=== PATIENT | female | born 1950 | race Caucasian/White ===

== ENCOUNTER 2019-01-03 10:55 | Day surgery (SDC) | payer MEDICARE ==
[~2019-01-03] VITALS: Ht 165.1 cm; Wt 117.0 kg
[~2019-01-03 10:55] MED LIST: ACET1TAB55 PO; ASPI1TAB PO; BIOT50004 PO; CALC1TAB40 PO; FAMO1TAB25 PO; FERR32TA PO; FLUTISP; GLIP5TAB20 PO; LORA-243 PO; LOSA25TA14 PO; METF-699 PO; NS 1,000 ML IV ONE; PRAV10TA3 PO; SYMB16INH INH; TUMS500C PO
[2019-01-03] MEDS ORDERED: fentaNYL 100 MCG/2 ML INJECTION (J3010) As Ordered ONE (12:41)
[2019-01-03] MEDS ORDERED: PROPOFOL 200 MG/20 ML VIAL As Ordered ONE (12:41)
[2019-01-03] MEDS ORDERED: LIDOCAINE 2% INJ 100 MG/5 ML SDV (FOR ANES.) As Ordered ONE (12:42)
--- NOTE | 2019-01-03 13:03 | ROOR ---
Patient Name: Marce Iglesias Procedure Date: 01/03/2019 12:42 PM Date of : 1950 Age: 68 Room: [facility] Gender: Female Note Status: Finalized Procedure: Upper GI endoscopy Indications: Iron deficiency anemia Providers: Young MAGUIRE MD Referring MD: YAZAN Miller Requesting Provider: Medicines: Monitored Anesthesia Care Complications: No immediate complications. Procedure: Pre-Anesthesia Assessment: - The heart rate, respiratory rate, oxygen saturations, blood pressure, adequacy of pulmonary ventilation, and response to care were monitored throughout the procedure. The Endoscope was introduced through the mouth, and advanced to the second part of duodenum. The upper GI endoscopy was accomplished without difficulty. The patient tolerated the procedure well. Findings: The examined esophagus was normal. Scattered moderate inflammation characterized by erosions and erythema was found in the gastric antrum. Biopsies were taken with a cold forceps for histology. The exam of the stomach was otherwise normal. The examined duodenum was normal. Biopsies for histology were taken with a cold forceps for evaluation of celiac disease. Impression: - Normal esophagus. - Moderate gastritis with a few scattered superficial erosions in the antrum. Biopsied. - The stomach is otherwise normal. - Normal examined duodenum. Biopsied. Recommendation: - Await pathology results. - Use Prilosec (omeprazole) 40 mg PO daily. - (the script was sent to your pharmacy on file) - If applicable, reduce/avoid NSAID pain medications. Use tylenol instead Young Maguire MD Young MAGUIRE MD 01/03/2019 1:02:41 PM This report has been signed electronically. Number of Addenda: 0 Note Initiated On: 01/03/2019 12:42 PM Estimated Blood Loss: Estimated blood loss: none.
--- NOTE | 2019-01-03 13:22 | ROOR ---
Patient Name: Marce Iglesias Procedure Date: 01/03/2019 12:43 PM Date of : 1950 Age: 68 Room: [facility] Gender: Female Note Status: Finalized Procedure: Colonoscopy Indications: Iron deficiency anemia Providers: Young MAGUIRE MD Referring MD: YAZAN Miller Requesting Provider: Medicines: Monitored Anesthesia Care Complications: No immediate complications. Procedure: Pre-Anesthesia Assessment: - The heart rate, respiratory rate, oxygen saturations, blood pressure, adequacy of pulmonary ventilation, and response to care were monitored throughout the procedure. The Colonoscope was introduced through the anus and advanced to 10 cm into the ileum. The colonoscopy was performed without difficulty. The patient tolerated the procedure well. The quality of the bowel preparation was good. Findings: The perianal and digital rectal examinations were normal. A single medium-sized localized angioectasia with bleeding on contact was found in the cecum. For hemostasis, two hemostatic clips were successfully placed. There was no bleeding at the end of the procedure. Multiple medium-mouthed diverticula were found in the sigmoid colon and descending colon. Internal hemorrhoids were found during retroflexion. The hemorrhoids were medium-sized. The exam was otherwise without abnormality on direct and retroflexion views. Impression: - A single colonic angioectasia (cecum). Clips were placed. - Moderate diverticulosis in the sigmoid colon and in the descending colon. - Internal hemorrhoids. - The examination was otherwise normal on direct and retroflexion views. - No specimens collected. Recommendation: - Continue present medications. - No ibuprofen, naproxen, or other non-steroidal anti-inflammatory drugs. Young Maguire MD Young MAGUIRE MD 01/03/2019 1:22:18 PM This report has been signed electronically. Number of Addenda: 0 Note Initiated On: 01/03/2019 12:43 PM Estimated Blood Loss: Estimated blood loss: none.
[2019-01-03 13:52] VITALS: BP 149/75
== END 2019-01-03 14:01 | disposition home or self-care (01) ==
LOC: M OPP 10:55
PROVIDERS: ATTEND Internal Medicine Gastroenterology
DX: D50.9 Iron deficiency anemia, unspecified (principal); K52.0 Gastroenteritis and colitis due to radiation; K64.8 Other hemorrhoids; K57.30 Diverticulosis of large intestine without perforation or abscess without bleeding; K29.70 Gastritis, unspecified, without bleeding; Z79.82 Long term (current) use of aspirin; Z79.899 Other long term (current) drug therapy; Z88.2 Allergy status to sulfonamides; Z91.048 Other nonmedicinal substance allergy status; Z88.8 Allergy status to other drugs, medicaments and biological substances
CPT/HCPCS: 43239; 45382; 88305; J3010

== ENCOUNTER 2021-09-03 07:27 | Emergency (ER) | payer MEDICARE ==
[~2021-09-03] VITALS: Ht 167.6 cm; Wt 119.8 kg
[~2021-09-03 07:27] MED LIST changes: -ASPI1TAB PO; +ASPI81TA26 PO; +FAMO10TA50 PO; -FAMO1TAB25 PO; -METF-699 PO; +METF-817 PO; -NS 1,000 ML IV ONE
[2021-09-03 08:33] LABS: BASO % 0.5 % (0.0-1.0); EOS % 0.3 % (0.0-3.0); HEMATOCRIT 39.2 % (36.0-47.0); HEMOGLOBIN 12.9 g/dl (12.0-15.5); LYMPH # 0.8 10^3/uL (1.5-5.0); LYMPH % 10.3 % (24.0-44.0); MEAN CORPUSCULAR HEMOGLOBIN 33.2 pg (27.0-33.0); MEAN CORPUSCULAR HGB CONC 32.9 g/dl (32.0-36.5); MEAN CORPUSCULAR VOLUME 100.8 fl (80.0-96.0); MONO # 0.7 10^3/uL (0.0-0.8); MONO % 9.1 % (2.0-8.0); NEUTROPHILS # 6.3 10^3/uL (1.5-8.5); NEUTROPHILS % 79.5 % (36.0-66.0); PLATELET COUNT, AUTOMATED 186 10^3/uL (150-450); RED BLOOD COUNT 3.89 10^6/uL (4.00-5.40); WHITE BLOOD COUNT 7.9 10^3/uL (4.0-10.0)
[2021-09-03] MEDS ORDERED: ONDANSETRON 4MG/2ML VIAL IV ONE (08:45)
[2021-09-03] MEDS ORDERED: MORPHINE 2 MG/ML 1ML VIAL (J2270) IV ONE (08:45)
--- NOTE | 2021-09-03 08:48 | REP ---
INDICATION: bilat shoulder pain. decreased COMPARISON: None. TECHNIQUE: Internal rotation, external rotation, and Y view. FINDINGS: Left shoulder demonstrates cortical irregularity at the acromioclavicular joint along with subtle increased sclerosis and blunting to the glenoid rim. No evidence for acute fracture or dislocation. Subacromial space is normal. No periarticular calcifications or loose bodies are identified. Right shoulder demonstrates cortical irregularity and moderate spurring at the acromioclavicular joint and distal aspect of the acromion process. Increased sclerosis and blunting to the glenoid rim is appreciated. No evidence for acute fracture or dislocation. Subacromial space is normal. No periarticular calcifications or loose bodies are identified. IMPRESSION: Moderate bilateral arthritic degenerative changes (right greater than left). <Electronically signed by Alfie Sweeney > 09/03/21 [id number]
[2021-09-03 09:03] LABS: BLOOD UREA NITROGEN 20 MG/DL (7-18); CALCIUM LEVEL 9.8 MG/DL (8.8-10.2); CARBON DIOXIDE LEVEL 25 MEQ/L (21-32); CHLORIDE LEVEL 104 MEQ/L (98-107); CK-MB VALUE MASS < 1.0 NG/ML (<3.6); CPK CREATINE PHOSPHOKINASE 42 U/L (26-192); CREATININE FOR GFR 1.04 MG/DL (0.55-1.30); GLOMERULAR FILTRATION RATE 55.6 (>39); GLUCOSE, FASTING 268 MG/DL (70-100); MB/CK RELATIVE INDEX 2.38 (< OR =4); POTASSIUM SERUM 4.5 MEQ/L (3.5-5.1); SODIUM LEVEL 137 MEQ/L (136-145); TROPONIN I < 0.02 NG/ML (< 0.10)
[2021-09-03] MEDS ORDERED: KETOROLAC 30 MG/ML 1ML VIAL IV ONE (10:55)
[2021-09-03 11:50] VITALS: BP 186/84
--- NOTE | 2021-09-03 17:44 | ECGEPIP ---
[facility] - ED Test Date: 2021-09-03 Pat Name: MUNA MELTON Department: Room: - Gender: Female Administrator Pesticide: reji : 1950 Requested By: MARISA Parra PA-C Order Number: [id number] Reading MD: Adele Patel Measurements Intervals [place] Rate: 87 P: 42 ID: [id number] QRS: -5 QRSD: 86 T: 40 QT: 370 QTc: 445 Interpretive Statements Normal sinus rhythm No prior Electronically Signed on 09-03-2021 17:44:12 EDT by Adele Patel
== END 2021-09-03 11:52 | disposition home or self-care (01) ==
LOC: M ED 07:27
DX: M25.511 Pain in right shoulder (principal); M25.512 Pain in left shoulder; E11.9 Type 2 diabetes mellitus without complications; J45.909 Unspecified asthma, uncomplicated; M19.90 Unspecified osteoarthritis, unspecified site; Z79.82 Long term (current) use of aspirin; Z79.84 Long term (current) use of oral hypoglycemic drugs; Z79.899 Other long term (current) drug therapy; Z88.2 Allergy status to sulfonamides; Z88.8 Allergy status to other drugs, medicaments and biological substances; Z91.89 Other specified personal risk factors, not elsewhere classified
CPT/HCPCS: 73030; 80048; 82550; 82553; 84484; 85025; 93005; 96374; 96375; 99284; J1885; J2270; J2405

== ENCOUNTER 2022-02-06 12:18 | Emergency (ER) | payer MEDICARE ==
[~2022-02-06] VITALS: Ht 167.6 cm; Wt 111.8 kg
[2022-02-06 12:18] VITALS: BP 154/73
[~2022-02-06 12:18] MED LIST changes: +LOSA25TA13 PO; -LOSA25TA14 PO
[2022-02-06] MEDS ORDERED: NS 1,000 ML IV ONE (15:05)
[2022-02-06] MEDS ORDERED: ALBUTEROL 90 MCG/ACT 8GM HFA INHALER INH ONE (15:05)
[2022-02-06] MEDS ORDERED: methylPREDNISolone 125MG 2ML VIAL IV ONE (15:05)
[2022-02-06 15:35] LABS: RSV AMPLIFICATION NEGATIVE (NEGATIVE)
[2022-02-06 15:38] LABS: BASO % 0.5 % (0.0-1.0); EOS # 0.1 10^3/uL (0.0-0.5); EOS % 1.3 % (0.0-3.0); HEMATOCRIT 37.2 % (36.0-47.0); HEMOGLOBIN 12.5 g/dl (12.0-15.5); LYMPH # 0.7 10^3/uL (1.5-5.0); LYMPH % 13.2 % (24.0-44.0); MEAN CORPUSCULAR HEMOGLOBIN 31.6 pg (27.0-33.0); MEAN CORPUSCULAR HGB CONC 33.6 g/dl (32.0-36.5); MEAN CORPUSCULAR VOLUME 94.2 fl (80.0-96.0); MONO # 0.7 10^3/uL (0.0-0.8); MONO % 12.4 % (2.0-8.0); NEUTROPHILS % 72.2 % (36.0-66.0); PLATELET COUNT, AUTOMATED 232 10^3/uL (150-450); RED BLOOD COUNT 3.95 10^6/uL (4.00-5.40); WHITE BLOOD COUNT 5.6 10^3/uL (4.0-10.0)
[2022-02-06 15:40] VITALS: O2SAT 96
[2022-02-06 16:12] LABS: ALBUMIN 3.6 GM/DL (3.2-5.2); ALT/SGPT 21 U/L (12-78); BILIRUBIN,DIRECT 0.6 MG/DL (0.0-0.2); BILIRUBIN,TOTAL 1.3 MG/DL (0.2-1.0); BLOOD UREA NITROGEN 15 MG/DL (7-18); CALCIUM LEVEL 9.5 MG/DL (8.8-10.2); CARBON DIOXIDE LEVEL 29 MEQ/L (21-32); CHLORIDE LEVEL 95 MEQ/L (98-107); CREATININE FOR GFR 0.96 MG/DL (0.55-1.30); GLOMERULAR FILTRATION RATE > 60.0 (>39); GLUCOSE, FASTING 167 MG/DL (70-100); NT-PRO BNP 100 PG/ML (<125); POTASSIUM SERUM 4.2 MEQ/L (3.5-5.1); SODIUM LEVEL 130 MEQ/L (136-145); TOTAL PROTEIN 7.9 GM/DL (6.4-8.2)
[2022-02-06] MEDS ORDERED: cefTRIAXone SOD 2 GM in D5W MINI-BAG PLUS 50 ML IV ONE (16:30)
[2022-02-06] MEDS ORDERED: LevoFLOXacin IV 750 MG in IV 1 EA IV ONE (16:30)
[2022-02-06] MEDS ORDERED: LEVO750T14 PO (18:39)
[2022-02-06] MEDS ORDERED: VENTAER INH (18:43)
[2022-02-06] MEDS ORDERED: PRED20TA PO (18:43)
== END 2022-02-06 18:52 | disposition home or self-care (01) ==
LOC: M ED 12:18
DX: J18.9 Pneumonia, unspecified organism (principal); E11.9 Type 2 diabetes mellitus without complications; I10 Essential (primary) hypertension; K21.9 Gastro-esophageal reflux disease without esophagitis; Z88.1 Allergy status to other antibiotic agents; Z88.2 Allergy status to sulfonamides; Z88.8 Allergy status to other drugs, medicaments and biological substances; Z91.048 Other nonmedicinal substance allergy status; Z79.899 Other long term (current) drug therapy; Z79.82 Long term (current) use of aspirin; Z79.84 Long term (current) use of oral hypoglycemic drugs
CPT/HCPCS: 71046; 80048; 80076; 83605; 83880; 85025; 87040; 87631; 94640; 96361; 96365; 96366; 96368; 96375; 99284; J0696; J1956; J2930

== ENCOUNTER → 2025-07-13 | Outpatient (CLI) | payer MEDICARE ==
[~2025-07-13] MED LIST changes: -BIOT50004 PO; +BIOT5CAP8 PO; +GLIP-318 PO; -GLIP5TAB20 PO; +LEVO75TAB PO; +METF-1156 PO; -METF-817 PO; -PRAV10TA3 PO; +PRAV10TA43 PO; +PRED20TA PO; +VENTAER INH
== END ==
LOC: M PLAIMG 09:48
PROVIDERS: ATTEND Internal Medicine Nephrology
DX: N18.31 Chronic kidney disease, stage 3a (principal); R10.10 Upper abdominal pain, unspecified; K57.30 Diverticulosis of large intestine without perforation or abscess without bleeding; I85.00 Esophageal varices without bleeding; I86.8 Varicose veins of other specified sites; R93.2 Abnormal findings on diagnostic imaging of liver and biliary tract